=== PATIENT | male | born 1995 | race Caucasian/White ===

== ENCOUNTER 2022-02-16 21:15 | Emergency (ER) | payer OTHER ==
[2022-02-16] MEDS ORDERED: Cephalexin 500 MG Cap PO ONE (22:40)
[2022-02-16] MEDS ORDERED: Bacitracin Oint 1 GM U/D Packet TOP ONE (22:40)
== END 2022-02-16 23:18 | disposition home or self-care (01) ==
LOC: MW.ED 21:15
DX: S61.412A Laceration without foreign body of left hand, initial encounter (principal); F17.210 Nicotine dependence, cigarettes, uncomplicated; W26.9XXA Contact with unspecified sharp object(s), initial encounter
CPT/HCPCS: 73130; 99283; A9270